=== PATIENT | female | born 1980 | race African-American/Black ===

== ENCOUNTER 2016-10-15 20:59 | Emergency (ER) | payer MEDICAID ==
[~2016-10-15] VITALS: Ht 152.4 cm; Wt 54.4 kg
[~2016-10-15 20:59] MED LIST: ALBUAER3 IN; ATEN100T PO; FURO40TA4 PO; INSUINJ37 SUBCUT; INSUINJ47 IJ; LEV50T PO; LOSA100T27 PO; PRAV20TA3 PO
[2016-10-15 21:52] LABS: Urine Bilirubin Negative (Negative); Urine Blood Negative /uL (Negative); Urine Color Yellow (Yellow); Urine Glucose Normal (Normal); Urine Ketone Negative (Negative); Urine Mucus FEW (None Seen); Urine Nitrite Negative (Negative); Urine RBC 1 /hpf (0 - 4); Urine Squamous Epithelial Cell FEW /hpf (<5); Urine Urobilinogen Normal (Negative)
[2016-10-15 22:47] VITALS: BP 135/85
== END 2016-10-16 00:05 | disposition home or self-care (01) ==
LOC: ER 21:06
DX: S00.93XA Contusion of unspecified part of head, initial encounter (principal); I10 Essential (primary) hypertension; F17.210 Nicotine dependence, cigarettes, uncomplicated; F15.10 Other stimulant abuse, uncomplicated; R42 Dizziness and giddiness; Z88.1 Allergy status to other antibiotic agents; Z91.013 Allergy to seafood; Z79.4 Long term (current) use of insulin; Z79.899 Other long term (current) drug therapy; W22.8XXA Striking against or struck by other objects, initial encounter; Y93.89 Activity, other specified; Y92.89 Other specified places as the place of occurrence of the external cause; Y99.8 Other external cause status
CPT/HCPCS: 80307; 81001; 81025

== ENCOUNTER 2017-07-12 01:13 | Emergency (ER) | payer MEDICAID ==
[~2017-07-12] VITALS: Ht 157.5 cm; Wt 52.2 kg
[2017-07-12 01:29] VITALS: BP 156/110
[2017-07-12] MEDS ORDERED: cloNIDine HCL 0.1 MG TAB ONE (01:39)
[2017-07-12] MEDS ORDERED: cloNIDine HCL 0.1 MG TAB PO ONE (01:45)
== END 2017-07-12 02:19 | disposition left against medical advice (07) ==
LOC: EDBD 01:13 → ER 01:19 → MERGE 01:19 → ER 02:19
DX: I10 Essential (primary) hypertension (principal); Z53.21 Procedure and treatment not carried out due to patient leaving prior to being seen by health care provider